=== PATIENT | male | born 1955 | race Caucasian/White ===

== ENCOUNTER 2020-12-23 07:05 | Outpatient (REF) | payer OTHER, SELFPAY ==
[2020-12-23 11:42] LABS: Anion Gap 15 (12-20); Blood Urea Nitrogen 12 mg/dL (9-16); Calcium 9.5 mg/dL (8.4-10.2); Carbon Dioxide 20 mmol/L (22-29); Chloride 107 mmol/L (96-108); Estimated Glomerular Filt Rate > 60; Glucose Random 100 mg/dL (60-115); Potassium 4.1 mmol/L (3.3-5.1); Sodium 138 mmol/L (135-145)
== END 2020-12-23 07:06 | disposition home or self-care (01) ==
LOC: HO.HMGCLDS 07:05
PROVIDERS: PCP Internal Medicine; Visit Provider Physician Assistant
DX: I25.10 Atherosclerotic heart disease of native coronary artery without angina pectoris (principal)
CPT/HCPCS: 36415; 80048

== ENCOUNTER 2021-07-14 07:03 | Outpatient (REF) | payer MEDICARE, SELFPAY ==
[2021-07-14 11:19] LABS: MANUAL DIFF FLAG NO
[2021-07-14 11:34] LABS: Basophils Percent Auto 0.6 % (0-2); Eosinophils Absolute Auto 0.2 X10*3/uL (0.0-0.4); Eosinophils Percent Auto 3.2 % (0-4); Hematocrit 43.7 % (42.0-52.0); Hemoglobin 14.5 g/dl (14.0-18.0); Imm Gran Abs Auto 0.02 X10*3/uL (0.00-0.03); Imm Gran Pct Auto 0.3 % (0.0-0.4); Lymphocytes Absolute Auto 2.1 X10*3/uL (1.2-4.9); Lymphocytes Percent Auto 30.1 % (20-40); Mean Corpuscular HGB Conc 33.2 g/dl (31.0-36.0); Mean Corpuscular Hemoglobin 32.9 pg (27.0-33.0); Mean Corpuscular Volume 99.1 fL (80.0-98.0); Mean Platelet Volume 11.3 fL (9.4-12.4); Monocytes Absolute Auto 0.6 X10*3/uL (0.1-1.2); Monocytes Percent Auto 8.1 % (2-11); Neutrophils Absolute Auto 3.9 x10*3/uL (2.0-8.3); Neutrophils Percent Auto 57.7 % (45-73); Platelet Count 183 X10*3/uL (160-400); Red Blood Count 4.41 X10*6/uL (4.60-5.80); Red Cell Distribution Width 13.2 % (11.0-16.0); White Blood Count 6.8 X10*3/uL (4.8-10.8)
[2021-07-14 12:11] LABS: PSA,Total (Free>4and<10) 2.75 ng/mL (0.00-4.00); Vitamin D 25-OH Total 11.7 ng/mL (>30)
[2021-07-14 12:18] LABS: Alanine Aminotransferase 21 U/L (0-40); Anion Gap 11 (12-20); Aspartate Amino Transferase 26 U/L (5-37); Blood Urea Nitrogen 14 mg/dL (9-16); Calcium 9.8 mg/dL (8.4-10.2); Carbon Dioxide 28 mmol/L (22-29); Chloride 109 mmol/L (96-108); Cholesterol 167 mg/dL; Estimated Glomerular Filt Rate > 60; Glucose Fasting 100 mg/dL (60-99); HDL Cholesterol 48 mg/dL; LDL Cholesterol Calculated 98 mg/dl; Sodium 143 mmol/L (135-145); Triglycerides 105 mg/dL
== END 2021-07-14 07:04 | disposition home or self-care (01) ==
LOC: HO.HMGCLDS 07:03
PROVIDERS: Visit Provider Internal Medicine
DX: Z00.01 Encounter for general adult medical examination with abnormal findings (principal); Z12.5 Encounter for screening for malignant neoplasm of prostate; E78.5 Hyperlipidemia, unspecified; I10 Essential (primary) hypertension; I25.2 Old myocardial infarction; I25.5 Ischemic cardiomyopathy; Z78.9 Other specified health status
CPT/HCPCS: 36415; 80048; 80061; 82306; 84153; 84450; 84460; 85025

== ENCOUNTER 2021-11-17 07:06 | Outpatient (REF) | payer MEDICARE, MEDICAID, SELFPAY ==
[2021-11-17 11:58] LABS: Anion Gap 14 (12-20); Blood Urea Nitrogen 10 mg/dL (9-16); Calcium 9.4 mg/dL (8.4-10.2); Carbon Dioxide 23 mmol/L (22-29); Chloride 104 mmol/L (96-108); Estimated Glomerular Filt Rate > 60; Glucose Random 102 mg/dL (60-115); Potassium 4.5 mmol/L (3.3-5.1); Sodium 136 mmol/L (135-145)
== END 2021-11-17 07:07 | disposition home or self-care (01) ==
LOC: HO.HMGCLDS 07:06
PROVIDERS: PCP Internal Medicine; Visit Provider Physician Assistant
DX: I42.9 Cardiomyopathy, unspecified (principal)
CPT/HCPCS: 36415; 80048

== ENCOUNTER 2022-04-19 06:55 | Outpatient (REF) | payer OTHER, MEDICAID, SELFPAY ==
[2022-04-19 12:11] LABS: Anion Gap 14 (12-20); Blood Urea Nitrogen 8 mg/dL (9-16); Calcium 9.7 mg/dL (8.4-10.2); Carbon Dioxide 26 mmol/L (22-29); Chloride 105 mmol/L (96-108); Estimated Glomerular Filt Rate > 60; Glucose Random 91 mg/dL (60-115); Potassium 4.3 mmol/L (3.3-5.1); Sodium 141 mmol/L (135-145)
== END 2022-04-19 06:56 | disposition home or self-care (01) ==
LOC: HO.HMGCLDS 06:55
PROVIDERS: PCP Internal Medicine; Visit Provider Physician Assistant
DX: E78.2 Mixed hyperlipidemia (principal)
CPT/HCPCS: 36415; 80048

== ENCOUNTER 2022-06-09 06:57 | Outpatient (REF) | payer MEDICARE, SELFPAY ==
[2022-06-09 11:35] LABS: Anion Gap 10 (12-20); Blood Urea Nitrogen 13 mg/dL (9-16); Calcium 9.6 mg/dL (8.4-10.2); Carbon Dioxide 29 mmol/L (22-29); Chloride 104 mmol/L (96-108); Cholesterol 151 mg/dL; Estimated Glomerular Filt Rate > 60; Glucose Random 102 mg/dL (60-115); HDL Cholesterol 46 mg/dL; LDL Cholesterol Calculated 86 mg/dl; Sodium 138 mmol/L (135-145); Triglycerides 97 mg/dL
== END 2022-06-09 06:58 | disposition home or self-care (01) ==
LOC: HO.HMGCLDS 06:57
PROVIDERS: PCP Internal Medicine; Visit Provider Physician Assistant
DX: I25.10 Atherosclerotic heart disease of native coronary artery without angina pectoris (principal); I10 Essential (primary) hypertension; E78.2 Mixed hyperlipidemia
CPT/HCPCS: 36415; 80048; 80061

== ENCOUNTER 2022-09-27 08:49 | Outpatient (REF) | payer MEDICARE, SELFPAY ==
[2022-09-27 11:33] LABS: Anion Gap 13 (12-20); Blood Urea Nitrogen 12 mg/dL (9-16); Calcium 9.3 mg/dL (8.4-10.2); Carbon Dioxide 25 mmol/L (22-29); Chloride 107 mmol/L (96-108); Estimated Glomerular Filt Rate > 60; Glucose Random 101 mg/dL (60-115); Potassium 5.1 mmol/L (3.3-5.1); Sodium 140 mmol/L (135-145)
[2022-09-27 11:49] LABS: B Type Natriuretic Peptide 186 pg/mL (<100)
== END 2022-09-27 08:50 | disposition home or self-care (01) ==
LOC: HO.HMGCLDS 08:49
PROVIDERS: PCP Internal Medicine; Visit Provider Physician Assistant
DX: I25.5 Ischemic cardiomyopathy (principal); I10 Essential (primary) hypertension; I42.9 Cardiomyopathy, unspecified; I25.10 Atherosclerotic heart disease of native coronary artery without angina pectoris
CPT/HCPCS: 36415; 80048; 83880

== ENCOUNTER 2022-10-28 07:25 | Outpatient (REF) | payer MEDICARE, SELFPAY ==
[2022-10-28 11:40] LABS: Potassium 4.2 mmol/L (3.3-5.1)
== END 2022-10-28 07:26 | disposition home or self-care (01) ==
LOC: HO.HMGCLDS 07:25
PROVIDERS: PCP Internal Medicine; Visit Provider Internal Medicine Clinical Cardiac Electrophysiology
DX: R06.02 Shortness of breath (principal)
CPT/HCPCS: 36415; 84132

== ENCOUNTER 2023-02-15 08:25 | Outpatient (AMB) | payer MEDICARE, SELFPAY ==
--- NOTE | 2023-02-15 08:28 | MHC.PC.OV ---
Vital Signs 02/15/23 08:31 Height 5 ft 7 in Weight 169 lb BMI 26.5 BP 116/70 Blood Pressure Location Lt brachial Position Sitting Pulse 85 Pulse Source Pulse Oximeter Pulse Oximetry (%) 98 Oxygen Delivery Method Room Air Intake Visit Reasons: Physical exam Intake Note: Pt is here today for his PE Allergies No Known Allergies Allergy (Verified 02/15/23 09:17) Medication List - Last Reconciled 02/15/23 by Lillian Hector MD aspirin (Adult Low Dose Aspirin) 81 mg PO DAILY atorvastatin 40 mg PO DAILY carvedilol 12.5 mg PO Q12H furosemide 10 mg PO QAM sacubitril-valsartan 49-51 mg (Entresto) 1 tab PO BID Tobacco use date assessed: 02/15/23 Fall risk assessment: No Falls in past year Last assessed Fall Risk: 02/15/23 Dental Screening Dental Screen Date: 02/15/23 Did you have a dental visit in the last 12 months?: No Was dental information given to patient?: Patient declined HPI Physical exam HPI Details 67-year-old male here today for his physical exam. He has ischemic cardiomyopathy with history of STEMI December 2014 with subsequent CABG, with a SIMS to the LAD, SVG to RCA , currently being followed at [facility].He has repeatedly declined ICD for primary prevention. He also had a recent echocardiogram with [id number] shunt, possible ASD and was recommend to undergo JAZMIN to assess size and indications for closure, repeatedly explained to patient that he is at high risk for stroke but patient states that he is not interested in undergoing any invasive procedure. He continues to smoke cigarettes and consumes at least 3-4 beers a day, not interested in stopping smoking or his alcohol intake. 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 Denies any chest pain, no shortness of breath, no presyncope, no orthopnea, palpitations, leg swelling. Patient states that he feels completely fine. He also does not want to get any vaccinations, nor does he want to get any colon cancer screening either colonoscopy or Cologuard. PFSH Medical History Alcohol consumption four to six days per week Colonoscopy refused Essential hypertension History of ST elevation myocardial infarction (STEMI) Hx of echocardiogram Hyperlipidemia Immunization declined Ischemic cardiomyopathy Smokes one pack per day or less and unmotivated to quit Surgical History Hx of coronary artery bypass graft Social History Housing: House Patient Tobacco Use Status: Current everyday Tobacco user Tobacco use type: Cigarette Cigarette Packs Per Day: 12 e-Cigarette/Vaping Use: Never Used Current occupational status: unemployed Cognitive needs: No Hearing needs: No Vision needs: Yes Questionnaire PHQ-9 Over the last 2 weeks, how often have you been bothered by any of the following problems? 1. Little interest or pleasure in doing things: not at all 2. Feeling down, depressed, or hopeless: not at all 3. Trouble falling or staying asleep, or sleeping too much: not at all 4. Feeling tired or having little energy: not at all 5. Poor appetite or overeating: not at all 6. Feeling bad about yourself - or that you are a failure or have let yourself or your family down: not at all 7. Trouble concentrating on things, such as reading the newspaper or watching television: not at all 8. Moving or speaking so slowly that other people could have noticed. Or the opposite - being so fidgety or restless that you have been moving around a lot more than usual: not at all 9. Thoughts that you would be better off or of hurting yourself in some way: not at all Total score: 0 Depression Screening Interpretation: Negative 78471 - PHQ-9 Billing: Yes Source: Developed by Drs. Slick Barcenas, Ruma Renteria, Cirilo Manuel and colleagues, with an educational dex from [employer]. Thrive Questionnaire Date Thrive assessed: 02/15/23 I am a: Patient What is your living situation today?: I choose not to answer this question Within the past 12 months, did the food you bought not last and you didn't have the money to get more?: I choose not to answer this question Within the past 12 months, did you worry whether your food would run out before you got money to buy more?: I choose not to answer this question Do you have trouble paying for medicines?: I choose not to answer this question Do you have trouble getting transportation to medical appointments?: I choose not to answer this question Do you have trouble paying your heating and electricity bill?: I choose not to answer this question Do you have trouble taking care of your child, family member or friend?: I choose not to answer this question Do you have trouble with day-to-day activities such as bathing, preparing meals, shopping, managing finances, etc.?: I choose not to answer this question Are you currently unemployed and looking for a job?: I choose not to answer this question Are you interested in more education?: I choose not to answer this question AUDIT C Alcohol Use Questionnaire (AUDIT-C) 1. How often do you have a drink containing alcohol?: 2-3 times a week 2. How many drinks containing alcohol do you have on a typical day when you are drinking?: 1 or 2 3. How often do you have six or more drinks on one occasion?: Never Total Score: 3 KEVEN-7 AMB Questionnaire KEVEN-7 Date KEVEN - 7 assessed: 02/15/23 Source: Developed by Drs. Slick Barcenas, Ruma Renteria, Cirilo Manuel and colleagues, with an educational dex from [employer]. KEVEN-7 Assessment Billing KEVEN-7 Assessment Tool: pt declined-do not bill Review of Systems Const Denies body aches, Denies fatigue, Denies fever(s), Denies headache(s) and Denies weakness Eyes Details: sees Dr Madrid, has appt in 06/2023 Denies change in vision, Denies eye discharge and Denies itchy eyes ENT Reports Normal hearing present and Denies headache(s) Card Denies chest pain, Denies lightheadedness, Denies palpitations and Denies dyspnea Resp Denies chest congestion, Denies cough, Denies dyspnea and Denies wheezing GI Denies abdominal pain, Denies change in bowel habits and Denies heartburn Denies dysuria, Denies urinary frequency and Denies urinary urgency Musc Denies arthralgias, Denies joint swelling and Denies stiffness Skin/Breast Denies lesions and Denies rash Neuro Reports Normal hearing present, Denies headache(s), Denies Sensory deficit (Neuro) and Denies weakness Psych Reports as per HPI Endo Denies fatigue, Denies polydipsia, Denies polyuria and Denies palpitations [place]/Lymph Denies easy bruising Aller/Immun Denies itchy eyes, Denies seasonal rhinorrhea and Denies wheezing Physical exam (Primary Care) Vital Signs: Last Vital Signs Pulse 85 02/15/23 08:31 BP 116/70 02/15/23 08:31 Pulse Ox 98 02/15/23 08:31 Oxygen Delivery Method Room Air 02/15/23 08:31 BMI result Body Mass Index 26.5 Tobacco/Smoking Status: Tobacco use Status Tobacco use date assessed 02/15/23 02/15/23 08:30 Patient Tobacco Use Status Current everyday Tobacco 02/15/23 08:30 Tobacco use type Cigarette 02/15/23 08:30 e-Cigarette/Vaping Use Never Used 02/15/23 08:30 Are you ready to quit: No Tobacco cessation counseling provided: Yes Items discussed: Other PHQ-9: PHQ-9 Score PHQ-9: Total score 0 02/15/23 09:27 Depression Screening Interpretation: Negative Thrive Assessment: Date of Thrive Assessment Date Thrive assessed 02/15/23 02/15/23 09:13 Advance Care Planning discussion: Exists, not on file Const General: healthy appearing, no acute distress and alert Orientation/consciousness: patient oriented x3 Limitations: no limitations and No altered mental status HENMT Head: Yes normal to inspection, Yes normocephalic and Yes atraumatic Ears: hearing grossly normal bilaterally, external ears normal, TM's normal bilaterally and EAC's normal General nose exam: Normal external nose present, Normal nasal mucous membranes and turbinates present and No nasal discharge present Face and sinus: Yes normal facial exam, Yes sinuses nontender and Yes face symmetric Mouth: Normal oral and palatal mucosa present, lip normal, tongue normal, oropharynx normal and moist mucous membranes Eyes Conjunctivae: conjunctivae normal Sclerae: sclerae normal Pupils: Pupils anisocoria right pupil size greater than left EOM: EOMs intact bilaterally Neck Neck: Yes full ROM and Yes no lymphadenopathy Thyroid: Thyroid normal Carotids: normal carotid upstroke Chest Chest palpation & inspection: normal inspection of the chest Resp Effort & Inspection: normal respiratory effort and able to speak in complete sentences Auscultation: clear to auscultation bilaterally Cardio Jugular venous distension: no JVD Rate: regular rate Rhythm: regular rhythm Heart sounds: S1 normal heart sound present and S2 normal heart sound present GI Inspection: Yes normal to inspection Palpation (GI): Soft to palpation Auscultation: normal bowel sounds General: Yes no CVA tenderness Male General Exam: Yes normal external exam, No hernia, No inguinal lymphadenopathy and No Genital lesions present Penis: No Genital lesions present Back/Spine/Pelvis Back: no CVA tenderness Skin General skin exam: no rashes or lesions noted Neuro General: patient oriented x3, gait normal, moves all extremities, no focal motor deficits and CN's II-XI intact bilaterally Cranial nerves: Yes Normal hearing present Cognition (Neuro): normal cognition Gait exam (Neuro): Normal gait present Motor exam (neuro): 5/5 motor strength present throughout Sensory Exam: No Sensory deficit (Neuro) Extrem General: Yes normal to inspection, Yes full ROM, Yes no pedal edema and Yes normal gait Psych Appearance: grossly normal and well kempt Mental Status: mental status grossly normal Speech and movement: Normal speech and movement present Affect: normal affect Attitude: cooperative Thought process: Normal thought process present Thought content: Normal thought content present Assessment and Plan Assessment & Plan (1) Colonoscopy refused: Code(s): Z53.20 - Procedure and treatment not carried out because of patient's decision for unspecified reasons (2) Immunization declined: Code(s): Z28.21 - Immunization not carried out because of patient refusal (3) Smokes one pack per day or less and unmotivated to quit: Code(s): F17.210 - Nicotine dependence, cigarettes, uncomplicated Plan: Patient strongly advised to stop smoking, as smoking damages blood vessels, degenerative of joints and spine, damage to lungs and heart., predisposes to developing certain cancers like lung, breast, bladder, colon. Recommended to try decreasing cigarette use by 1-2 cigarettes a day. Advised to monitor what triggers are for smoking so that this can be discussed on the next office visit. We can discuss different options to quit smoking when ready. (4) Alcohol consumption four to six days per week: Code(s): Z78.9 - Other specified health status Plan: Patient not interested in stopping alcohol intake, states that he enjoys it too much, aware of the consequences of continuing alcohol intake (5) Ischemic cardiomyopathy: Comment: ff'd by DR Chad Cardenas at [facility] Code(s): I25.5 - Ischemic cardiomyopathy Plan: Currently on Entresto and baby aspirin as well as carvedilol and furosemide (6) Hyperlipidemia: Code(s): E78.5 - Hyperlipidemia, unspecified Plan: Fasting lipid panel ordered . Continue with , in addition to adherence to low-cholesterol diet and regular exercise, at least 30 minutes 3 to 4 times a week. Advised patient to make healthy food choices, eat more fruits, vegetables, whole grains, wild caught fish and low-fat dairy. Limit amount of meat and fried or fatty food products, as well as processed foods and fast foods. (7) Essential hypertension: Code(s): I10 - Essential (primary) hypertension Plan: Blood pressure at goal of less than 130/80. Continue with current medication. Reinforced importance of following a low sodium diet, getting regular exercise, and lowering stress levels. (8) Hx of coronary artery bypass graft: Comment: 12/2014 - SIMS to LAD, SVG to RCA and OM with severe LV dysfunction Code(s): Z95.1 - Presence of aortocoronary bypass graft Plan: Continue aspirin 81 mg daily (9) Annual visit for general adult medical examination with abnormal findings: Code(s): Z00.01 - Encounter for general adult medical examination with abnormal findings Plan: Will check appropriate labs. Recent edentulous does not want to go back to see a dentist, advised to get regular eye exams, he sees Dr. Madrid, has an appointment already scheduled for June 2023. Take adequate calcium in diet and vitamin-D 3 at 2000 IU per cap once a day, in addition to weight-bearing exercises to help maintain good muscle tone and weight control. Instructed to do self-testicular exam to check for any mass. Declines getting any immunization nor does he want to get any colon cancer screening (10) History of ST elevation myocardial infarction (STEMI): Comment: 12/2014 Code(s): I25.2 - Old myocardial infarction Plan: Continue aspirin 81 mg daily strongly advised to quit smoking and alcohol intake Orders: Orders Lipid Panel Today E78.5 - Hyperlipidemia, unspecified, F17.210 - Nicotine dependence, cigarettes, uncomplicated, I10 - Essential (primary) hypertension, I25.5 - Ischemic cardiomyopathy, Z00.01 - Encounter for general adult medical examination with abnormal findings, Z28.21 - Immunization not carried out because of patient refusal, Z53.20 - Procedure and treatment not carried out because of patient's decision for unspecified reasons, Z78.9 - Other specified health status, Z95.1 - Presence of aortocoronary bypass graft Aspartate Amino Transferase Today E78.5 - Hyperlipidemia, unspecified, F17.210 - Nicotine dependence, cigarettes, uncomplicated, I10 - Essential (primary) hypertension, I25.5 - Ischemic cardiomyopathy, Z00.01 - Encounter for general adult medical examination with abnormal findings, Z28.21 - Immunization not carried out because of patient refusal, Z53.20 - Procedure and treatment not carried out because of patient's decision for unspecified reasons, Z78.9 - Other specified health status, Z95.1 - Presence of aortocoronary bypass graft Alanine Aminotransferase Today E78.5 - Hyperlipidemia, unspecified, F17.210 - Nicotine dependence, cigarettes, uncomplicated, I10 - Essential (primary) hypertension, I25.5 - Ischemic cardiomyopathy, Z00.01 - Encounter for general adult medical examination with abnormal findings, Z28.21 - Immunization not carried out because of patient refusal, Z53.20 - Procedure and treatment not carried out because of patient's decision for unspecified reasons, Z78.9 - Other specified health status, Z95.1 - Presence of aortocoronary bypass graft Basic Metabolic Panel Fasting Today E78.5 - Hyperlipidemia, unspecified, F17.210 - Nicotine dependence, cigarettes, uncomplicated, I10 - Essential (primary) hypertension, I25.5 - Ischemic cardiomyopathy, Z00.01 - Encounter for general adult medical examination with abnormal findings, Z28.21 - Immunization not carried out because of patient refusal, Z53.20 - Procedure and treatment not carried out because of patient's decision for unspecified reasons, Z78.9 - Other specified health status, Z95.1 - Presence of aortocoronary bypass graft PSA,Total (Free>4and<10) Today E78.5 - Hyperlipidemia, unspecified, F17.210 - Nicotine dependence, cigarettes, uncomplicated, I10 - Essential (primary) hypertension, I25.5 - Ischemic cardiomyopathy, Z00.01 - Encounter for general adult medical examination with abnormal findings, Z28.21 - Immunization not carried out because of patient refusal, Z53.20 - Procedure and treatment not carried out because of patient's decision for unspecified reasons, Z78.9 - Other specified health status, Z95.1 - Presence of aortocoronary bypass graft Coding Level of Care Code Est Pt Prev Care >65y(68429) Diagnoses Colonoscopy refused Z53.20 Immunization declined Z28.21 Smokes one pack per day or less and unmotivated to quit F17.210 Alcohol consumption four to six days per week Z78.9 Ischemic cardiomyopathy I25.5 Hyperlipidemia E78.5 Essential hypertension I10 Hx of coronary artery bypass graft Z95.1 Annual visit for general adult medical examination with abnormal findings Z00.[address] elevation myocardial infarction (STEMI) I25.2 Additional Codes Vital Signs *Quality* - Advance Care Planning discussion: Exists, not on file ([id number])
[2023-02-15 08:31] VITALS: BP 116/70; PULSE 85; O2SAT 98; BMI 26.5
== END 2023-02-15 10:28 | disposition home or self-care (01) ==
PROVIDERS: Visit Provider Internal Medicine
DX: Z00.00 Encounter for general adult medical examination without abnormal findings (principal); F17.210 Nicotine dependence, cigarettes, uncomplicated; I10 Essential (primary) hypertension; Z95.1 Presence of aortocoronary bypass graft; Z53.20 Procedure and treatment not carried out because of patient's decision for unspecified reasons; Z28.21 Immunization not carried out because of patient refusal; Z78.9 Other specified health status; I25.5 Ischemic cardiomyopathy; E78.5 Hyperlipidemia, unspecified; I25.2 Old myocardial infarction
CPT/HCPCS: 1123F; 99397

== ENCOUNTER 2023-02-17 06:05 | Outpatient (REF) | payer MEDICARE, SELFPAY ==
[2023-02-17 12:29] LABS: PSA,Total (Free>4and<10) 3.93 ng/mL (0.00-4.00)
[2023-02-17 12:44] LABS: Alanine Aminotransferase 18 U/L (0-40); Anion Gap 10 (12-20); Aspartate Amino Transferase 24 U/L (5-37); Blood Urea Nitrogen 15 mg/dL (9-16); Calcium 9.3 mg/dL (8.4-10.2); Carbon Dioxide 26 mmol/L (22-29); Chloride 107 mmol/L (96-108); Cholesterol 151 mg/dL (<200); Estimated Glomerular Filt Rate > 60; Glucose Fasting 96 mg/dL (60-99); HDL Cholesterol 43 mg/dL (>40); LDL Cholesterol Calculated 75 mg/dL (<100); Potassium 4.4 mmol/L (3.3-5.1); Sodium 139 mmol/L (135-145); Triglycerides 167 mg/dL (<150)
== END 2023-02-17 06:06 | disposition home or self-care (01) ==
LOC: HO.HMGCLDS 06:05
PROVIDERS: PCP Internal Medicine; Visit Provider Internal Medicine
DX: Z00.01 Encounter for general adult medical examination with abnormal findings (principal); Z12.5 Encounter for screening for malignant neoplasm of prostate; I25.5 Ischemic cardiomyopathy; I10 Essential (primary) hypertension; E78.5 Hyperlipidemia, unspecified; F17.210 Nicotine dependence, cigarettes, uncomplicated; Z78.9 Other specified health status; Z95.1 Presence of aortocoronary bypass graft
CPT/HCPCS: 36415; 80048; 80061; 84153; 84450; 84460

== ENCOUNTER 2023-11-10 11:31 | Outpatient (AMB) | payer MEDICARE, SELFPAY ==
--- NOTE | 2023-11-10 11:41 | A.OFFPC_ITS ---
Vital Signs 11/10/23 11:43 Height 5 ft 7 in Weight 174 lb BMI 27.2 BP 98/62 Blood Pressure Location Rt brachial Position Sitting Pulse 79 Pulse Source Pulse Oximeter Pulse Oximetry (%) 96 Oxygen Delivery Method Room Air Intake Visit Reasons: cataract eye surgery 11/21/23 Intake Note: Pt is here today for his pre-op for Rt cataract surgery on 11/21/[address] Madrid Allergies No Known Allergies Allergy (Verified 11/10/23 12:02) Medication List - Last Reconciled 11/10/23 by PREETI Hale aspirin (Adult Low Dose Aspirin) 81 mg PO DAILY atorvastatin 40 mg PO DAILY carvedilol 12.5 mg PO Q12H furosemide 10 mg PO QAM sacubitril-valsartan 49-51 mg (Entresto) 1 tab PO BID Tobacco use date assessed: 11/10/23 Fall risk assessment: No Falls in past year Last assessed Fall Risk: 11/10/23 Dental Screening Dental Screen Date: 11/10/23 Did you have a dental visit in the last 12 months?: No Was dental information given to patient?: Patient declined HPI HPI Comments History of Present Illness Details Patient is a 68-year-old male in today for preoperative clearance for cataract surgery in his right eye. He has ischemic cardiomyopathy with history of STEMI December 2014 with subsequent CABG, with a SIMS to the LAD, SVG to RCA , currently being followed at [facility]. Dyslipidemia- utilizes atorvastation 40 mg PO daily. Patient has no complaints at the time of the appointment. [facility] Medical History Colonoscopy refused Immunization declined Alcohol consumption four to six days per week Smokes one pack per day or less and unmotivated to quit Ischemic cardiomyopathy Hyperlipidemia Essential hypertension Hx of echocardiogram History of ST elevation myocardial infarction (STEMI) Surgical History Hx of coronary artery bypass graft Social History Housing: House Are you a primary resident care manager to a significant other at home: No Do you presently have visiting nurse or other home services: No Patient Tobacco Use Status: Current everyday Tobacco user Tobacco use type: Cigarette Cigarette Packs Per Day: 12 Cigarettes Per Day: 15 Years Smoked: 50 e-Cigarette/Vaping Use: Never Used Current occupational status: unemployed Cognitive needs: No Hearing needs: No Vision needs: Yes Questionnaire Thrive Questionnaire Date Thrive assessed: 02/15/23 KEVEN-7 AMB Questionnaire KVEEN-7 Date KEVEN - 7 assessed: 02/15/23 Source: Developed by Drs. Slick Barcenas, Ruma Renteria, Cirilo Manuel and colleagues, with an educational dex from [employer]. Review of Systems Const All systems reviewed & are unremarkable except as noted in HPI and below Denies chills, Denies fever(s) and Denies headache(s) ENT Denies headache(s) Card Denies chest pain and Denies dyspnea Resp Denies cough, Denies dyspnea and Denies wheezing GI Denies diarrhea, Denies nausea and Denies vomiting Neuro Denies headache(s) Aller/Immun Denies wheezing Physical exam (Primary Care) Vital Signs: Last Vital Signs Pulse 79 11/10/23 11:43 BP 98/62 11/10/23 11:43 Pulse Ox 96 11/10/23 11:43 Oxygen Delivery Method Room Air 11/10/23 11:43 BMI result Body Mass Index 27.2 Tobacco/Smoking Status: Tobacco use Status Tobacco use date assessed 11/10/23 11/10/23 11:45 Patient Tobacco Use Status Current everyday Tobacco 11/10/23 11:45 Tobacco use type Cigarette 11/10/23 11:45 e-Cigarette/Vaping Use Never Used 11/10/23 11:45 Thrive Assessment: Date of Thrive Assessment Date Thrive assessed 02/15/23 11/10/23 11:45 Const Other: Appearance: Alert.? Oriented X3.? No acute distress.? Head: Normocephalic, Eyes: Sclera white. ENT: Pharynx normal.?TM intact and pearly bal. Neck: Normal inspection.? Neck supple.?Full ROM. CVS: Normal heart rate and rhythm.? Pulses normal.? Respiratory: No respiratory distress.? Breath sounds normal.? Abdomen: Soft and nontender.? Neuro: Oriented X 3.? Office Procedures EKG 84500-[id number], Complete Assessment and Plan Assessment & Plan (1) Pre-operative clearance: Comment: Patient had physical exam today. Based on most recent cardiology notes patient is low to moderate cardiac risk for cataract surgery based on cardiac comorbi dities. Noted the patient is refusing further interventions from Cardiology. Code(s): Z01.818 - Encounter for other preprocedural examination (2) Essential hypertension: Comment: Controlled with Entresto, furosemide, and carvedilol. Code(s): I10 - Essential (primary) hypertension (3) Hx of coronary artery bypass graft: Comment: 12/2014 - SIMS to LAD, SVG to RCA and OM with severe LV dysfunction. Patient followed by [facility]. Code(s): Z95.1 - Presence of aortocoronary bypass graft (4) Smokes one pack per day or less and unmotivated to quit: Comment: Patient currently smokes 10-15 cigarettes per day. No complaints of shortness of breath, wheeze, fever Code(s): F17.210 - Nicotine dependence, cigarettes, uncomplicated (5) Alcohol consumption four to six days per week: Comment: Currently consumes 3-4 alcoholic beverages per week. Code(s): Z78.9 - Other specified health status Orders: Orders AMB EKG-In Office Today Z13.6 - Encounter for screening for cardiovascular disorders Coding Level of Care Code Est Pt Level 3 (52408) Diagnoses Pre-operative clearance Z01.818 Essential hypertension I10 Hx of coronary artery bypass graft Z95.1 Smokes one pack per day or less and unmotivated to quit F17.210 Alcohol consumption four to six days per week Z78.9 CPT Codes EKG - CPT: 59168-[id number], Complete ([id number]) Time Spent (min) 35
[2023-11-10 11:43] VITALS: BP 98/62; PULSE 79; O2SAT 96; BMI 27.2
== END 2023-11-10 13:10 | disposition home or self-care (01) ==
LOC: HO.HMGC 11:31
PROVIDERS: PCP Internal Medicine; Visit Provider Nurse Practitioner Primary Care
DX: I10 Essential (primary) hypertension (principal); Z95.1 Presence of aortocoronary bypass graft; F17.210 Nicotine dependence, cigarettes, uncomplicated
CPT/HCPCS: 93000; 99213

== ENCOUNTER 2023-11-21 06:53 | Day surgery (SDC) | payer MEDICARE, SELFPAY ==
[2023-11-09 08:52] VITALS: BMI 25.8
--- NOTE | 2023-11-21 07:42 | PC.NURSE ---
speaks [place] and refused offerred case mgr
[2023-11-21 07:47] VITALS: BP 109/72; PULSE 73; RESP 16; TEMP 36.6; O2SAT 99
[2023-11-21] MEDS: Tetracaine HCl/PF 0.5% Oph Sol 4 ML DROPS 1 DROP EYE-RIGHT (07:50)
[2023-11-21] MEDS: Cyclopentolate 1 % Ophth Sol 2 ML DRPBTL 1 DROP EYE-RIGHT ×3 (07:51→07:56)
[2023-11-21] MEDS: Tropicamide 1 % Ophth Sol 3 ML BTL 1 DROP EYE-RIGHT ×3 (07:52→07:57)
[2023-11-21] MEDS: Ketorolac Tromethamine 0.5% Op 10 ML DROPS 1 DROP EYE-RIGHT ×3 (07:52→07:58)
[2023-11-21] MEDS: Phenylephrine HCL 2.5% Oph SoL 2 ML BOTTLE 1 DROP EYE-RIGHT ×3 (07:53→07:58)
--- NOTE | 2023-11-21 08:32 | P.PCNO_ITS ---
Ophthalmology Procedure Procedure Date of Service: 11/21/23 Ophthalmology Viscoelastic: Healon Duet Dual Pack Pro Ophthalmology Lenses: IOL Acrysof MP - [id number] (22) Procedure Notes: PREOPERATIVE DIAGNOSIS: Decreased visual acuity right eye secondary to cataract POSTOPERATIVE DIAGNOSIS: Same PROCEDURE: Right cataract extraction with intraocular lens insertion SURGEON: Sam Madrid M.D. ANESTHESIA: Topical/MAC ESTIMATED BLOOD LOSS: None COMPLICATIONS: None After obtaining informed consent, the patient was brought to the operating room suite and placed in the supine position. After adequate sedation per anesthesia, topical drops of Tetracaine were given to the right eye. The eye was then prepped and draped in the usual sterile fashion. The operating room microscope was then positioned over the operative eye and a lid speculum placed. A paracentesis was created. Viscoelastic was then instilled into the anterior chamber. A three plane incision was then created temporally, utilizing a 2.85 mm keratome. Capsulotomy forceps were then utilized to create a circular tear capsulotomy. Hydrodissection and hydrodelineation were carried out until adequate mobilization of the nucleus occurred. Phacoemulsification was then utilized to remove the dense central nucl eus followed by removal of the cortical material utilizing the automated aspiration irrigation unit. Viscoelastic was instilled into the posterior capsular bag followed by placement of a posterior chamber intraocular lens without difficulty. The residual Viscoelastic was then removed utilizing the automated IA machine. The wound was checked and found to be watertight. The patient tolerated the procedure well and the lid speculum was removed. Intracameral injection of Vigamox 0.1 mL followed by a subtenon injection of Kenalog-40 0.2 mL were administered. The patient will be seen in the a.m.
--- NOTE | 2023-11-21 08:32 | MHC.SHP ---
Pre-Procedural Eval Section A - 24 Hr Update-Section A only Date of Service: 11/21/23 The patient is an INPATIENT: No Changes since office visit: No Cold of Flu in the past 2 weeks, No New Medical Problems, No Changes in Medication and No Patient answered all questions The patient has been examined within 24 hours of the surgical procedure. The History & Physical has been completed within 30 days and I have reviewed it.: Yes Section B - Complete if H&P > 30 days Chief Complaint: Age-related nuclear cataract, right eye Allergies: Allergies Allergy/AdvReac Type Severity Reaction Status Date / Time No Known Allergies Allergy Verified 11/10/23 12:02 Plan Diagnosis/Plan: Unchanged I have reviewed the history and physical and performed a pertinent physical examination on my patient. No changes have occurred unless specified. Time Spent With Patient Time: Total time managing care of this patient today ____ minutes.
[2023-11-21 09:01] VITALS: BP 119/81; PULSE 70; RESP 16; TEMP 36.6; O2SAT 98
== END 2023-11-21 09:12 | disposition home or self-care (01) ==
PROVIDERS: PCP Internal Medicine; Visit Provider Ophthalmology
PROC: (CPT 66985; principal; 2023-11-21 08:50)
DX: H25.11 Age-related nuclear cataract, right eye (principal); I10 Essential (primary) hypertension; I25.2 Old myocardial infarction; Z79.82 Long term (current) use of aspirin; Z79.899 Other long term (current) drug therapy
CPT/HCPCS: 66984; J3301; V2630

== ENCOUNTER 2024-03-20 10:31 | Outpatient (AMB) | payer MEDICARE, SELFPAY ==
[2024-03-20 11:03] VITALS: BP 102/70; PULSE 75; O2SAT 97; BMI 27.1
--- NOTE | 2024-03-20 11:03 | A.OFFPC_ITS ---
Vital Signs 03/20/24 11:03 Height 5 ft 7 in Weight 173 lb BMI 27.1 BP 102/70 Blood Pressure Location Rt brachial Position Sitting Pulse 75 Pulse Source Pulse Oximeter Pulse Oximetry (%) 97 Oxygen Delivery Method Room Air Intake Visit Reasons: Physical exam - see comments Intake Note: Pt is here today for his PE (pt is due for his colorectal screening) Allergies No Known Allergies Allergy (Verified 04/02/24 03:07) Medication List - Last Reconciled 04/02/24 by Lillian Hector MD aspirin (Adult Low Dose Aspirin) 81 mg PO DAILY atorvastatin 40 mg PO DAILY carvedilol 12.5 mg PO Q12H diclofenac sodium 1% 2 grams topical QID PRN furosemide 10 mg PO QAM sacubitril-valsartan 49-51 mg (Entresto) 1 tab PO BID Tobacco use date assessed: 03/20/24 Fall risk assessment: No Falls in past year Last assessed Fall Risk: 03/20/24 Dental Screening Dental Screen Date: 03/20/24 Did you have a dental visit in the last 12 months?: No Did you have a dental problem in the last 6 months where you did not have access to dental care?: No Was dental information given to patient?: Patient has dentist HPI Physical exam - see comments HPI Details 69 -year-old male with history of ischem ic cardiomyopathy, hypertension, hyperlipidemia, CAD with history of STEMI December 2014 with subsequent CABG, with a SIMS to the LAD, SVG to RCA , currently being followed at [facility].He has repeatedly declined ICD for primary prevention. He also had a recent echocardiogram with uovc-cs-ihfci shunt, possible ASD and was recommend to undergo JAZMIN to assess size and indications for closure, repeatedly explained to patient that he is at high risk for stroke but patient states that he is not interested in undergoing any invasive procedure. He continues to smoke cigarettes and consumes at least 3-4 beers a day, not inte rested in stopping smoking or his alcohol intake. Has refused all vaccinations and does not want to do any colon cancer screening, even Cologuard. States thalia he feels well, no complaints at present time. [facility] Medical History (Updated 04/02/24 @ 03:20 by Lillian Hector MD) Polyarthralgia Colonoscopy refused Immunization declined Alcohol consumption four to six days per week Smokes one pack per day or less and unmotivated to quit Ischemic cardiomyopathy Hyperlipidemia Essential hypertension Hx of echocardiogram History of ST elevation myocardial infarction (STEMI) Surgical History Hx of coronary artery bypass graft Social History Housing: House Are you a primary overnight caregiver to a significant other at home: No Do you presently have visiting nurse or other home services: No Patient Tobacco Use Status: Current everyday Tobacco user Tobacco use type: Cigarette Cigarette Packs Per Day: 12 Cigarettes Per Day: 15 Years Smoked: 50 e-Cigarette/Vaping Use: Never Used Current occupational status: unemployed Cognitive needs: No Hearing needs: No Vision needs: Yes Questionnaire PHQ-9 Over the last 2 weeks, how often have you been bothered by any of the following problems? 1. Little interest or pleasure in doing things: not at all 2. Feeling down, depressed, or hopeless: not at all 3. Trouble falling or staying asleep, or sleeping too much: not at all 4. Feeling tired or having little energy: not at all 5. Poor appetite or overeating: not at all 6. Feeling bad about yourself - or that you are a failure or have let yourself or your family down: not at all 7. Trouble concentrating on things, such as reading the newspaper or watching television: not at all 8. Moving or speaking so slowly that other people could have noticed. Or the opposite - being so fidgety or restless that you have been moving around a lot more than usual: not at all 9. Thoughts that you would be better off or of hurting yourself in some way: not at all Total score: 0 Depression Screening Interpretation: Negative Depression Screening Done: Yes 98908 - PHQ-9 Billing: Yes Source: Developed by Drs. Slick Barcenas, Ruma Renteria, Cirilo Manuel and colleagues, with an educational dex from [employer]. Thrive Questionnaire Date Thrive assessed: 03/20/24 I am a: Patient What is your living situation today?: I choose not to answer this question Within the past 12 months, did the food you bought not last and you didn't have the money to get more?: I choose not to answer this question Within the past 12 months, did you worry whether your food would run out before you got money to buy more?: I choose not to answer this question Do you have trouble paying for medicines?: I choose not to answer this question Do you have trouble getting transportation to medical appointments?: I choose not to answer this question Do you have trouble paying your heating and electricity bill?: I choose not to answer this question Do you have trouble taking care of your child, family member or friend?: I choos e not to answer this question Do you have trouble with day-to-day activities such as bathing, preparing meals, shopping, managing finances, etc.?: I choose not to answer this question Are you interested in more education?: I choose not to answer this question Please select the resources that you would like help with: None Currently or been in a relationship where the following occur: I choose not to answer THRIVE Score: 0 AUDIT C Alcohol Use Questionnaire (AUDIT-C) 1. How often do you have a drink containing alcohol?: 4 or more times a week 2. How many drinks containing alcohol do you have on a typical day when you are drinking?: 1 or 2 3. How often do you have six or more drinks on one occasion?: Never Total Score: 4 Score Reviewed/Action Taken: Yes KEVEN-7 AMB Questionnaire KEVEN-7 Date KEVEN - 7 assessed: 03/20/24 Feeling nervous, anxious, or on edge: 0 = Not at all Not being able to stop or control worryin = Not at all Worrying too much about different things: 0 = Not at all Trouble relaxin = Not at all Being so restless that it is hard to sit still: 0 = Not at all Becoming easily annoyed or irritable: 0 = Not at all Feeling afraid as if something awful might happen: 0 = Not at all Total KEVEN-7 score (0-4 normal; 5-9 mild; 10-14 moderate; 15-21 severe): 0 Source: Developed by Drs. Slick Barcenas, Ruma Renteria, Cirilo Manuel and colleagues, with an educational dex from [employer] KEVEN-7 Assessment Billing KEVEN-7 Assessment Tool: KEVEN-7 Assessment 87916 Review of Systems Const Denies body aches, Denies fatigue, Denies fever(s) and Denies weakness Eyes Details: Had cataract surgery right eye with Dr. Madrid Denies eye discharge and Denies itchy eyes ENT Reports no additional complaints and Reports Normal hearing present Card Denies chest pain, Denies lightheadedness, Denies palpitations and Denies dyspnea Resp Denies chest congestion, Denies cough, Denies dyspnea and Denies wheezing GI Denies abdominal pain, Denies change in bowel habits and Denies heartburn Denies dysuria, Denies urinary frequency and Denies urinary urgency Musc Reports arthralgias, Denies joint swelling, Denies muscle weakness and Reports stiffness Skin/Breast Denies lesions and Denies rash Neuro Reports Normal hearing present, Denies Sensory deficit (Neuro) and Denies weakness Psych Reports no additional complaints Endo Denies fatigue, Denies polydipsia, Denies polyuria and Denies palpitations [place]/Lymph Denies easy bruising Aller/Immun Denies itchy eyes, Denies seasonal rhinorrhea and Denies wheezing Physical exam (Primary Care) Vital Signs: Last Vital Signs Pulse 75 03/20/24 11:03 BP 102/70 03/20/24 11:03 Pulse Ox 97 03/20/24 11:03 Oxygen Delivery Method Room Air 03/20/24 11:03 BMI result Body Mass Index 27.1 Tobacco/Smoking Status: Tobacco use Status Tobacco use date assessed 03/20/24 03/20/24 11:05 Patient Tobacco Use Status Current everyday Tobacco 03/20/24 11:05 Tobacco use type Cigarette 03/20/24 11:05 e-Cigarette/Vaping Use Never Used 03/20/24 11:05 Are you ready to quit: No Tobacco cessation counseling provided: Yes Items discussed: Other PHQ-9: PHQ-9 Score PHQ-9: Total score 0 03/20/24 11:44 Depression Screening Interpretation: Negative Thrive Assessment: Date of Thrive Assessment Date Thrive assessed 03/20/24 03/20/24 11:05 Currently or been in a relationship where the following occur: I choose not to answer Advance Care Planning discussion: Completed/Scanned Date of discussion: 03/20/24 Who was present: Patient Forms completed: Health Care Proxy and MOLST Time spent: 16-45 minutes Actual minutes spent: 16 Const General: healthy appearing, no acute distress and alert Orientation/consciousness: patient oriented x3 Limitations: No altered mental status HENMT Head: Yes normal to inspection and Yes normocephalic Ears: hearing grossly normal bilaterally, external ears normal, TM's normal bilaterally and EAC's normal General nose exam: Normal external nose present Face and sinus: Yes face symmetric Mouth: Normal oral and palatal mucosa present, tongue normal, oropharynx normal and moist mucous membranes Eyes Conjunctivae: conjunctivae normal Sclerae: sclerae normal Pupils: Pupils anisocoria right pupil size greater than left EOM: EOMs intact bilaterally Neck Neck: Yes full ROM and Yes no lymphadenopathy Thyroid: Thyroid normal Carotids: normal carotid upstroke Chest Chest palpation & inspection: normal inspection of the chest Resp Effort & Inspection: normal respiratory effort and able to speak in complete sentences Auscultation: clear to auscultation bilaterally Cardio Jugular venous distension: no JVD Rate: regular rate Rhythm: regular rhythm Heart sounds: S1 normal heart sound present and S2 normal heart sound present GI Inspection: Yes normal to inspection Palpation (GI): Soft to palpation Auscultation: normal bowel sounds General: Yes no CVA tenderness Male General Exam: Yes normal external exam, No hernia, No inguinal lymphadenopathy and No Genital lesions present Penis: No Genital lesions present Back/Spine/Pelvis Back: no CVA tenderness Skin General skin exam: no rashes or lesions noted Neuro General: patient oriented x3, gait normal, moves all extremities, no focal motor deficits and CN's II-XI intact bilaterally Cranial nerves: Yes Normal hearing present Cognition (Neuro): normal cognition Gait exam (Neuro): Normal gait present Motor exam (neuro): 5/5 motor strength present throughout Sensory Exam: No Sensory deficit (Neuro) Extrem General: Yes normal to inspection, Yes full ROM, Yes no joint enlargement, Yes no pedal edema and Yes normal gait Psych Appearance: grossly normal and well kempt Mental Status: mental status grossly normal Speech and movement: Normal speech and movement present Affect: normal affect Attitude: cooperative Thought process: Normal thought process present Thought content: Normal thought content present Coding Level of Care Code Est Pt Prev Care >65y(37245) Diagnoses Annual visit for general adult medical examination with abnormal findings Z00.01 Essential hypertension I10 Pure hypercholesterolemia E78.00 Hyperlipidemia type: pure hypercholesterolemia Ischemic cardiomyopathy I25.5 Smokes one pack per day or less and unmotivated to quit F17.210 Alcohol consumption four to six days per week Z78.9 Immunization declined Z28.21 Colonoscopy refused Z53.20 Encounter for counseling regarding advance directives Z71.89 Polyarthralgia M25.50 Additional Codes KEVEN-7 Assessment Billing - KEVEN-7 Assessment Tool: KEVEN-7 Assessment 06964 ([id number]) Vital Signs *Quality* - Advance Care Planning discussion: Completed/Scanned ([id number]) Vital Signs *Quality* - Time spent: 16-45 minutes ([id number]) Assessment & Plan Assessment & Plan (1) Annual visit for general adult medical examination with abnormal findings: Code(s): Z00.01 - Encounter for general adult medical examination with abnormal findings Plan: Will check appropriate labs. Recommended dental visit every 6 months and regular eye exams, at least every 2 years, sees Dr. Madrid. Take adequate c alcium in diet and vitamin-D 3 at 2000 IU per cap once a day, in addition to weight-bearing exercises to help maintain good muscle tone and weight control. Instructed to do self testicular exam to check for any mass. Advised to quit alcohol intake and smoking cessation but patient not interested. Patient declined colon cancer screening and does not want to get any vaccines (2) Essential hypertension: Comment: Controlled with Entresto, furosemide, and carvedilol. Code(s): I10 - Essential (primary) hypertension Category: Medical Plan: Blood pressure at goal of less than 130/80. Controlled with Entresto, furosemide, and carvedilol. Reinforced importance of following a low sodium diet, getting regular exercise, and lowering stress levels. (3) Hyperlipidemia: Code(s): E78.5 - Hyperlipidemia, unspecified Category: Medical Qualifiers: Hyperlipidemia type: pure hypercholesterolemia Qualified Code(s): E78.00 - Pure hypercholesterolemia, unspecified Plan: fasting lipid profile ordered . Currently on atorvastatin 40 mg daily , stressed continued adherence to low-cholesterol diet and regular exercise, at least 30 minutes 3 to 4 times a week. Advised patient to make healthy food choices, eat more fruits, vegetables, whole grains, wild caught fish and low- fat dairy. Limit amount of meat and fried or fatty food products, as well as processed foods and fast foods. Strongly advised to quit smoking and alcohol intake, (4) Ischemic cardiomyopathy: Comment: ff'd by DR Chad Cardenas at [facility] Code(s): I25.5 - Ischemic cardiomyopathy Category: Medical Plan: Followed by [facility], currently on Entresto (5) Smokes one pack per day or less and unmotivated to quit: Comment: Patient currently smokes 10-15 cigarettes per day. No complaints of shortness of breath, wheeze, fever Code(s): F17.210 - Nicotine dependence, cigarettes, uncomplicated Category: Social Hx Plan: Patient strongly advised to stop smoking, as smoking damages blood vessels, degenerative of joints and spine, damage to lungs and heart., predisposes to developing certain cancers like lung, breast, bladder, colon. Recommended to try decreasing cigarette use by 1-2 cigarettes a day. Advised to monitor what triggers are for smoking so that this can be discussed on the next office visit. We can discuss different options to quit smoking when ready. (6) Alcohol consumption four to six days per week: Comment: Currently consumes 3-4 alcoholic beverages per week. Code(s): Z78.9 - Other specified health status Category: Social Hx Plan: Patient advised to abstain from any alcohol intake or at least cut back but patient not interested in quitting (7) Immunization declined: Code(s): Z28.21 - Immunization not carried out because of patient refusal Category: Medical Plan: Patient declined all vaccines (8) Colonoscopy refused: Code(s): Z53.20 - Procedure and treatment not carried out because of patient's decision for unspecified reasons Category: Medical Plan: Patient declined all colon cancer screening (9) Encounter for counseling regarding advance directives: Code(s): Z71.89 - Other specified counseling Plan: Initiated the conversation about Advanced Directives. Advanced Directives help patients prepare for current and future decisions about their medical treatment and place of care. Discussed with patient that it is a process where a patients current condition and prognosis are reviewed, their wishes for information regarding their illness are elicited, and likely medical dilemmas are presented and options discussed. MOLST and healthcare proxy form completed today. The form can be amended as needed, reviewed yearly and make changes as needed (10) Polyarthralgia: Code(s): M25.50 - Pain in unspecified joint Category: Medical Plan: Prescription sent diclofenac sodium 1%, apply to affected joints 3 to 4 times a day as needed for pain Orders: Orders Lipid Panel 03/22/24 I25.5 - Ischemic cardiomyopathy, E78.5 - Hyperlipidemia, unspecified, I10 - Essential (primary) hypertension, Z78.9 - Other specified health status, Z28.21 - Immunization not carried out because of patient refusal, Z53.20 - Procedure and treatment not carried out because of patient's decision for unspecified reasons, Z00.01 - Encounter for general adult medical examination with abnormal findings Alanine Aminotransferase 03/22/24 Z71.89 - Other specified counseling, F17.210 - Nicotine dependence, cigarettes, uncomplicated, I25.5 - Ischemic cardiomyopathy, E78.5 - Hyperlipidemia, unspecified, I10 - Essential (primary) hypertension, Z78.9 - Other specified health status, Z28.21 - Immunization not carried out because of patient refusal, Z53.20 - Procedure and treatment not carried out because of patient's decision for unspecified reasons, Z00.01 - Encounter for general adult medical examination with abnormal findings Aspartate Amino Transferase 03/22/24 Z71.89 - Other specified counseling, F17.210 - Nicotine dependence, cigarettes, uncomplicated, I25.5 - Ischemic cardiomyopathy, E78.5 - Hyperlipidemia, unspecified, I10 - Essential (primary) hypertension, Z78.9 - Other specified health status, Z28.21 - Immunization not c arried out because of patient refusal, Z53.20 - Procedure and treatment not carried out because of patient's decision for unspecified reasons, Z00.01 - Encounter for general adult medical examination with abnormal findings Basic Metabolic Panel Fasting 03/22/24 Z71.89 - Other specified counseling, F17.210 - Nicotine dependence, cigarettes, uncomplicated, I25.5 - Ischemic cardiomyopathy, E78.5 - Hyperlipidemia, unspecified, I10 - Essential (primary) hypertension, Z78.9 - Other specified health status, Z28.21 - Immunization not carried out because of patient refusal, Z53.20 - Procedure and treatment not carried out because of patient's decision for unspecified reasons, Z00.01 - Encounter for general adult medical examination with abnormal findings Medications: New diclofenac sodium 1% apply to single elbow, wrist or hand; for hand includes palm/fingers/back of hand 2 grams topical QID PRN 100 grams 0RF Shoulder pain
== END 2024-03-20 11:53 | disposition home or self-care (01) ==
PROVIDERS: PCP Internal Medicine; Visit Provider Internal Medicine
DX: Z00.00 Encounter for general adult medical examination without abnormal findings (principal); I10 Essential (primary) hypertension; E78.00 Pure hypercholesterolemia, unspecified; I25.5 Ischemic cardiomyopathy; F17.210 Nicotine dependence, cigarettes, uncomplicated; M25.50 Pain in unspecified joint; Z78.9 Other specified health status; Z28.21 Immunization not carried out because of patient refusal; Z53.20 Procedure and treatment not carried out because of patient's decision for unspecified reasons

== ENCOUNTER → 2024-03-20 10:31 | Outpatient (BNVA) | payer MEDICARE, SELFPAY | PROVIDERS: PCP Internal Medicine; Visit Provider Internal Medicine | DX: Z00.01 Encounter for general adult medical examination with abnormal findings (principal); I10 Essential (primary) hypertension; E78.00 Pure hypercholesterolemia, unspecified; I25.5 Ischemic cardiomyopathy; M25.50 Pain in unspecified joint; F17.210 Nicotine dependence, cigarettes, uncomplicated; Z78.9 Other specified health status; Z53.20 Procedure and treatment not carried out because of patient's decision for unspecified reasons; Z71.89 Other specified counseling; Z28.21 Immunization not carried out because of patient refusal | CPT/HCPCS: 96127; 99397; 99497 ==

== ENCOUNTER 2024-03-22 06:31 | Outpatient (REF) | payer MEDICARE, SELFPAY ==
[2024-03-22 10:13] LABS: Alanine Aminotransferase 14 U/L (0-40); Anion Gap 13 (12-20); Aspartate Amino Transferase 23 U/L (5-37); Blood Urea Nitrogen 12 mg/dL (9-16); Calcium 9.9 mg/dL (8.4-10.2); Carbon Dioxide 27 mmol/L (22-29); Chloride 105 mmol/L (96-108); Cholesterol 139 mg/dL (<200); Estimated Glomerular Filt Rate > 60; Glucose Fasting 104 mg/dL (60-99); HDL Cholesterol 48 mg/dL (>40); LDL Cholesterol Calculated 71 mg/dL (<100); Potassium 4.8 mmol/L (3.3-5.1); Sodium 140 mmol/L (135-145); Triglycerides 100 mg/dL (<150)
== END 2024-03-22 06:32 | disposition home or self-care (01) ==
LOC: HO.HMGCLDS 06:31
PROVIDERS: PCP Internal Medicine; Visit Provider Internal Medicine
DX: Z00.01 Encounter for general adult medical examination with abnormal findings (principal); I25.5 Ischemic cardiomyopathy; E78.5 Hyperlipidemia, unspecified; I10 Essential (primary) hypertension; Z78.9 Other specified health status; Z28.21 Immunization not carried out because of patient refusal; Z53.20 Procedure and treatment not carried out because of patient's decision for unspecified reasons; Z71.89 Other specified counseling; F17.210 Nicotine dependence, cigarettes, uncomplicated
CPT/HCPCS: 36415; 80048; 80061; 84450; 84460

== ENCOUNTER 2024-06-22 06:12 | Outpatient (REF) | payer MEDICARE, SELFPAY ==
[2024-06-22 10:18] LABS: Anion Gap 9 (12-20); Blood Urea Nitrogen 11 mg/dL (9-16); Calcium 8.9 mg/dL (8.4-10.2); Carbon Dioxide 25 mmol/L (22-29); Chloride 109 mmol/L (96-108); Estimated Glomerular Filt Rate > 60; Glucose Random 96 mg/dL (60-115); Potassium 4.2 mmol/L (3.3-5.1); Sodium 139 mmol/L (135-145)
== END 2024-06-22 06:13 | disposition home or self-care (01) ==
LOC: HO.HMGCLDS 06:12
PROVIDERS: PCP Internal Medicine; Visit Provider Internal Medicine Clinical Cardiac Electrophysiology
DX: I42.9 Cardiomyopathy, unspecified (principal)
CPT/HCPCS: 36415; 80048

== ENCOUNTER 2025-01-08 06:13 | Outpatient (REF) | payer MEDICARE, SELFPAY ==
--- OUTSIDE RECORDS SUMMARY | 2025-01-08 06:15 | XMS_ITS | Clinical Summary ---
Author Organization [address] [place] [address] [place] [id number] Phone Care Team Providers Care Director Of Curriculum Name Role Phone Lillian Hector MD Primary Care Provider Allergies No known active allergies Medications aspirin 81 mg chewable tablet Take 81 mg by mouth daily. Active sacubitriL-vals vinay (Entresto) 49-51 mg per tablet TAKE ONE TABLET BY MOUTH TWICE A DAY 180 tablet 2 5 Active carvediloL (COREG) 6.25 mg tablet TAKE ONE TABLET BY MOUTH TWICE A DAY WITH MEALS 180 tablet 2 5 Active furosemide (LASIX) 20 mg tablet TAKE ONE TABLET BY MOUTH EVERY DAY 90 tablet 2 5 Active atorvastatin (LIPITOR) 40 mg tablet TAKE ONE TABLET BY MOUTH EVERY DAY 90 tablet 5 Active atorvastatin (LIPITOR) 40 mg tablet TAKE ONE TABLET BY MOUTH EVERY DAY 90 tablet 5 01/04/20 25 Discontinued Active Problems Problem Noted Date Diagnosed Date Cardiomyopathy (CMS/HCC V24, CMS/HCC V28) 2021 SOB (shortness of breath) 10/12/2021 Ischemic cardiomyopathy 01/27/2021 Coronary artery disease invo lving [place] coronary artery of [place] heart without angina pectoris 07/23/2020 Overview (05/14/2024): STEMI December 2014 subsequent CABG with a SIMS to the LAD, SVG to RCA and OM with severe LV dysfunction persistent . Last echo March 2020 EF 10 to 15%, Essential hypertension 07/23/2020 Hyperlipidemia 07/23/2020 Social History Tobacco Use Types Packs/Day Years Used Date Smoking Tobacco: Some Days Pipe Smokeless Tobacco: Never Alcohol Use Standard Drinks/Week Comments Not Currently 0 (1 standard drink = 0.6 oz pur e alcohol) Couple beers a week Sex and Gender Information Value Date Recorded Sex Assigned at Not on file Legal Sex Male 7:18 PM EST Gender Identity Not on file Sexual Orientation Not on file Obstetrics History Last Filed Vital Signs Vital Sign Reading Time Taken Comments Blood Pressure 122/80 07/05/2024 9:32 AM EST Pulse 85 07/05/2024 9:32 AM EST Temperature - - Respiratory Rate - - Oxygen Saturation 98% 07/05/2024 9:32 AM EST Inhaled Oxygen Concentration - - Weight 82.6 kg (182 lb) 07/05/2024 9:32 AM EST Height 172.7 cm (5' 8 ) 07/05/2024 9:32 AM EST Body Mass Index 27.67 07/05/2024 9:32 AM EST Plan of Treatment Health Maintenance Due Date Last Done Comments DTaP,Tdap,and Td Vaccines (1 - Tdap) 1975 Pneumococcal Vaccine: 50+ Ye ars (1 of 2 - PCV) 1975 Zoster Vaccines (1 of 2) 2006 Abdominal Aortic Aneurysm (A AA) Screen 05/29/2022 Cholesterol Screening (Lipid Panel) 05/29/2022 Colorectal Cancer Screening: Colonoscopy 05/29/2022 Falls Risk Assessment 05/29/2022 Hepatitis C Screening 05/29/2022 Social Influencers of Health Screening 05/29/2022 Hypertension/CHF/CAD Annual BMP Blood Test 05/30/2022 COVID-19 Vaccine ( - 2023-2 5 season) 2024 Depression Screening 06/20/2024 Influenza Vaccine (#1) 2025 RSV Immunization Adult Patie nts (1 - 1-dose 75+ series) 2031 HIB Vaccines Aged Out No longer eligi ble based on patient's age to complete this topic HPV Vaccines Aged Out No longer eligi ble based on patient's age to complete this topic Hepatitis A Vaccines Aged Out No long er eligible based on patient's age to complete this topic Hepatitis B Vaccines Aged Out No long er eligible based on patient's age to complete this topic IPV Vaccines Aged Out No longer eligi ble based on patient's age to complete this topic MMR Vaccines Aged Out No longer eligi ble based on patient's age to complete this topic Meningococcal ACWY Vaccine Aged Out N o longer eligible based on patient's age to complete this topic Meningococcal B Vaccine Aged Out No l onger eligible based on patient's age to complete this topic RSV Immunization Patients Un edi 20 months Aged Out No longer eligible b ased on patient's age to complete this topic Varicella Vaccines Aged Out No longer eligible based on patient's age to complete this topic Insurance [employer] [employer] Care Teams Director Of Curriculum Relationship Specialty Start Date End Date Lillian Hector MD [address] [place] [address] PCP - General 12/18/14
[2025-01-08 10:36] LABS: MANUAL DIFF FLAG NO
[2025-01-08 10:39] LABS: Hematocrit 38.3 % (42.0-52.0); Hemoglobin 13.4 g/dl (14.0-18.0); Imm Gran Abs Auto 0.02 X10*3/uL (0.00-0.03); Imm Gran Pct Auto 0.3 % (0.0-0.4); Lymphocytes Absolute Auto 1.7 X10*3/uL (1.2-4.9); Mean Corpuscular HGB Conc 35.0 g/dl (31.0-36.0); Mean Corpuscular Hemoglobin 33.9 pg (27.0-33.0); Mean Corpuscular Volume 97.0 fL (80.0-98.0); NRBC Abs Auto 0.000 X10*3/uL (0.0-0.012); NRBC Pct Auto 0.0 /100WBC (0.0-0.2); Platelet Count 159 X10*3/uL (160-400); Red Blood Count 3.95 X10*6/uL (4.60-5.80); White Blood Count 6.4 X10*3/uL (4.8-10.8)
[2025-01-08 10:49] LABS: Cholesterol 127 mg/dL (<200); HDL Cholesterol 40 mg/dL (>40); Triglycerides 108 mg/dL (<150)
== END 2025-01-08 06:14 | disposition home or self-care (01) ==
LOC: HO.HMGCLDS 06:13
PROVIDERS: PCP Internal Medicine; Visit Provider Physician Assistant
DX: I10 Essential (primary) hypertension (principal); E78.2 Mixed hyperlipidemia; I25.10 Atherosclerotic heart disease of native coronary artery without angina pectoris; I25.5 Ischemic cardiomyopathy
CPT/HCPCS: 36415; 80061; 85025

== ENCOUNTER 2025-01-09 07:37 | Outpatient (REF) | payer MEDICARE, SELFPAY ==
--- OUTSIDE RECORDS SUMMARY | 2025-01-09 07:40 | XMS_ITS | Clinical Summary ---
Author Organization [address] [place] [address] [place] [phone] Phone Care Team Providers Care Maintenance Director Name Role Phone Lillian Hector MD Primary Care Provider [phone] Allergies No known active allergies Medications aspirin [...] cardiomyopathy 01/27/2021 Coronary artery disease invo lving [place] coronary artery of [place] heart without angina pectoris 07/23/2020 Overview (05/14/2024): [...] [employer] [employer] Care Teams Maintenance Director Relationship Specialty Start Date End Date Lillian Hector MD [address] [place] [address] PCP - General 12/18/14
== END 2025-01-09 07:38 | disposition home or self-care (01) ==
LOC: HO.LAB 07:37
PROVIDERS: PCP Internal Medicine; Visit Provider Physician Assistant
DX: I10 Essential (primary) hypertension (principal); E78.2 Mixed hyperlipidemia; I25.5 Ischemic cardiomyopathy; I25.10 Atherosclerotic heart disease of native coronary artery without angina pectoris
CPT/HCPCS: 36415; 83880